=== PATIENT | female | born 1990 | race Caucasian/White ===

== ENCOUNTER 2016-09-09 15:50 | Emergency (ER) | payer BC ==
[2016-09-09] MEDS ORDERED: NS 0.9% 1000 ML* 1,000 ML IV ONE (16:28)
[2016-09-09] MEDS ORDERED: Ketorolac INJ* 30 MG/ML 1 ML VIAL IV PUSH ONE (16:46)
[2016-09-09 16:57] LABS: Hematocrit 38 % (35-47); Hemoglobin 12.3 g/dl (12.0-16.0); Mean Corpuscular HGB Conc 32 g/dl (31-36); Mean Corpuscular Hemoglobin 24 pg (27-31); Mean Corpuscular Volume 75 fL (80-97); Mean Platelet Volume 8 um3 (7.4-10.4); Red Blood Count 5.05 10^6/ul (4.0-5.4); Red Cell Distribution Width 16 % (10.5-15); White Blood Count 4.9 10^3/ul (3.5-10.8)
[2016-09-09 17:11] LABS: ALT 12 U/L (7-52); AST 17 U/L (13-39); Albumin 4.7 g/dL (3.2-5.2); Alkaline Phosphatase 42 U/L (34-104); Anion Gap 6 mmol/L (2-11); BUN/Creatinine Ratio 13.1 (8-20); Blood Urea Nitrogen 8 mg/dL (6-24); C Reactive Protein < 1.00 mg/L (< 5.00); CO2 Carbon Dioxide 23 mmol/L (22-32); Calcium 9.3 mg/dL (8.6-10.3); Chloride 105 mmol/L (101-111); EGFR African American 153.7 (>60); EGFR Non-African American 119.5 (>60); Globulin 3.1 g/dL (2-4); Glucose 79 mg/dL (70-100); Sodium 134 mmol/L (133-145); Total Protein 7.8 g/dL (6.4-8.9)
[2016-09-09 17:29] LABS: RBC Parasite Smear No Parasites Seen (No Parasite)
--- NOTE | 2016-09-09 17:50 | ED ---
Juan Miguel Healy Janilya, scribed for Duane Webb MD on 09/09/16 at 1648 . Complex/Multi-Sys Presentation - HPI Summary HPI Summary: A 26 y/o female [facility] presenting w/ a gradual onset of constant weakness Sx starting yesterday. Pt states she arrived from [facility] yesterday and had a few mosquito bites on her ankle. Pt states yesterday her ankles were swollen and very itchy. Today, she reports low grade fever, chills, fatigue, weakness, WISEMAN of 5/10 severity. LNMP 28 days ago. PMHx anemia. FHx breast cancer - grandmother. - History Of Current Complaint Chief Complaint: EDGeneral Time Seen by Provider: 09/09/16 16:28 Hx Obtained From: Patient Onset/Duration: Gradual Onset, Lasting Days, Still Present Timing: Constant Severity Currently: Moderate Severity Initially: Moderate - Allergies/Home Medications Allergies/Adverse Reactions: Allergies Allergy/AdvReac Type Severity Reaction Status Date / Time No Known Allergies Allergy Verified 09/09/16 15:58 Home Medications: Home Medications NK [No Home Medications Reported] 09/09/16 [History Confirmed 09/09/16] PMH/Surg Hx/FS Hx/Imm Hx Previously Healthy: Yes Endocrine/Hematology History: Denies: Hx Diabetes Infectious Disease History: Reports: Traveled Outside the [place] in Last 30 Days - [facility] - Family History Known Family History: Positive: Other - breast cancer - grandmother - Social History Occupation: Student Hx Substance Use: No Review of Systems Positive: Fever, Chills, Fatigue Positive: Other - swollen ankles Positive: Headache, Weakness All Other Systems Reviewed And Are Negative: Yes Physical Exam - Summary Physical Exam Summary: VITAL SIGNS: Reviewed. GENERAL: Patient is a well developed and nourished female who is lying comfortable in the stretcher. Patient is not in any acute respiratory distress. HEAD AND FACE: Normocephalic EYES: PERRLA, EOMI x 2. EARS: Hearing grossly intact. MOUTH: Oropharynx within normal limits. NECK: Supple, trachea is midline, no adenopathy, no JVD, no carotid bruit. CHEST: Symmetric, no tenderness at palpation LUNGS: Clear to auscultation bilaterally. No wheezing or crackles. CVS: Regular rate and rhythm, S1 and S2 present, no murmurs or gallops appreciated. ABDOMEN: Soft, non-tender. Bowel sounds are normal. No abdominal abnormal pulsations. EXTREMITIES: Full ROM in all major joints, no edema, no cyanosis or clubbing. NEURO: Alert and oriented x 3. No acute neurological deficits. Speech is normal and follows commands. SKIN: Dry and warm. No signs of mosquito bites. Triage Information Reviewed: Yes Vital Signs On Initial Exam: Initial Vitals Temp Pulse Resp BP Pulse Ox 97.4 F 62 18 129/76 100 09/09/16 15:56 09/09/16 15:56 09/09/16 15:56 09/09/16 15:56 09/09/16 15:56 Vital Signs Reviewed: Yes Diagnostics - Vital Signs Vital Signs Temp Pulse Resp BP Pulse Ox 09/09/16 15:56 97.4 F 62 18 129/76 100 - Laboratory Result Diagrams: 09/09/16 16:45 09/09/16 16:45 Lab Statement: Any lab studies that have been ordered have been reviewed, and results considered in the medical decision making process. Complex Multi-Symp Course/Dx Assessment/Plan: A 26 y/o female came in to [facility] presenting w/ a gradual onset of constant weakness Sx starting yesterday. Pt states she arrived from [place] yesterday and had a few mosquito bites on her ankle. Pt states yesterday her ankles were swollen and very itchy. Today, she reports low grade fever, chills, fatigue, weakness, WISEMAN of 5/10 severity. Blood test are found within normal limits. Patient is worried about Malaria. I will send a malaria screen test but it will f/u by PMD. In the ED course she was given IVF and toradol for pain. After medications she is feeling better. After Toradol her Headache resolved, Therefore since patient asymptomatic she will be discharged home with f/u of PMD>. I discussed all the findings and test results with the patient. Patient was instructed to return to the emergency room immediately if any of the symptoms return or worsens. Plan of care was discussed with the patient and understands and agrees. All questions were answered at patient satisfaction. There were no further complaints or concerns. Lung exam before discharge: CTA B/L. Good air exchange. No wheezing or crackles heard. CVS: S1 and S2 present. No murmurs appreciated. Patient is alert and oriented x 3. Patient is hemodynamically stable. Patient will be discharged home with follow up PCP in the next 2-3 days - Diagnoses Differential Diagnoses/HQI/PQRI: Other - Weakness, fatigue, WISEMAN Provider Diagnoses: Weakness Discharge - Discharge Plan Condition: Stable Disposition: HOME Patient Education Materials: Weakness (ED) Referrals: Jody Child MD [Primary Care Provider] - 2 Days The documentation as recorded by the Juan Miguel peng Janilya accurately reflects the service I personally performed and the decisions made by Jon peoples Walter, MD.
[2016-09-09 18:34] VITALS: BP 124/62
== END 2016-09-09 18:30 | disposition home or self-care (01) ==
LOC: ED 15:50
DX: R53.1 Weakness (principal); R50.9 Fever, unspecified; R53.83 Other fatigue; R51 Headache
CPT/HCPCS: 36415; 80053; 83605; 85025; 86140; 87015; 87207; 96374; 99282; J1885